=== PATIENT | male | born 1955 | race Asian ===

== ENCOUNTER 2023-08-08 17:38 | Inpatient (IN) | payer BC, MEDICARE ==
[~2023-08-08] VITALS: Ht 167.6 cm; Wt 77.6 kg
[2023-08-08] MEDS: DEXTROSE 50% WATER 50ML SYRINGE IV ONE (18:28)
[2023-08-08 18:36] LABS: BASOPHILS % 0.6 % (0.0-2.0); EOSINOPHILS % 11.6 % (0.0-5.0); HEMATOCRIT. 28.4 % (42.0-52.0); HEMOGLOBIN. 9.8 g/dL (14.0-18.0); LYMPHOCYTES % 9.1 % (20.0-50.0); MEAN CORPUSCULAR HGB CONC 34.6 g/dL (31.0-37.0); MEAN CORPUSCULAR VOLUME 92.6 fL (80.0-94.0); MEAN PLATELET VOLUME 8.2 fl (7.4-10.4); MONOCYTES % 8.3 % (2.0-8.0); NEUTROPHILS % 70.4 % (40.0-76.0); PLATELET 182 x1000/uL (130-400); RED BLOOD CELL COUNT 3.07 mill/uL (4.7-6.1); RED CELL DISTRIBUTION WIDTH 15.9 % (11.6-14.6); WHITE BLOOD COUNT 6.4 x1000/uL (4.5-11.0)
[2023-08-08 18:44] LABS: PROTHROMBIN TIME 10.7 sec (9.6-11.0)
[2023-08-08 18:47] LABS: CHLORIDE 99 mEq/L (98-107); POTASSIUM 4.2 mEq/L (3.5-5.1); SODIUM 136 mEq/L (136-145)
[2023-08-08 18:48] LABS: CALCIUM 9.3 mg/dL (8.7-10.4); CARBON DIOXIDE 28 mEq/L (21-32)
[2023-08-08 18:53] LABS: CREATININE 3.3 mg/dL (0.6-1.3); UREA NITROGEN BLOOD 6 mg/dL (9-23)
[2023-08-08 18:54] LABS: TROPONIN I HIGH SENSITIVITY 27 ng/L (3.0-53)
[2023-08-08 18:55] LABS: ALANINE AMINOTRANSFERASE 14 IU/L (10-49); ALBUMIN 3.7 g/dL (3.2-4.8); ASPARTATE AMINOTRANSFERASE 20 IU/L (<34); BILIRUBIN TOTAL 0.9 mg/dL (0.1-1.0); PROTEIN TOTAL 7.9 g/dL (6.0-8.3)
[2023-08-08 19:01] LABS: GLUCOSE 44 mg/dL (70-105)
[2023-08-08] MEDS: IOHEXOL-350 100 ML BOTTLE ONE (19:05)
[2023-08-09] VITALS (11 sets, daily range): BP systolic 101–137; BP diastolic 33–96; PULSE 63–85; RESP 17–19; TEMP 97.5–98.6
[2023-08-09] MEDS ORDERED: GUAIFENESIN 200MG/10ML SUGAR FREE UDC PO PRN (01:45)
[2023-08-09] MEDS ORDERED: CLONIDINE 0.1MG TABLET PO PRN (01:45)
[2023-08-09] MEDS ORDERED: DOCUSATE SODIUM 100MG CAPSULE PO PRN (01:45)
[2023-08-09] MEDS ORDERED: DEXTROSE 50% WATER 50ML SYRINGE IV PRN (04:00)
[2023-08-09] MEDS: BLOOD SUGAR DIAGNOSTIC STRIP TEST SCH (07:09)
[2023-08-09] MEDS: INSULIN LISPRO 100 UNITS/ML SUBCUT SCH (08:10)
[2023-08-09] MEDS: ENOXAPARIN 30MG/0.3ML SYR SUBCUT SCH (08:40)
[2023-08-09 19:02] LABS: HEPATITIS B SURFACE ANTIGEN NEGATIVE (Negative)
[2023-08-09 19:23] LABS: HEPATITIS A AB IGM NEGATIVE (Negative)
[2023-08-09 19:24] LABS: HEPATITIS B CORE AB IGM NEGATIVE (Negative); HEPATITIS C AB NON REACTIVE (Neg) (Negative)
[2023-08-09 21:18] LABS: BASOPHILS % 0.5 % (0.0-2.0); EOSINOPHILS % 12.1 % (0.0-5.0); HEMATOCRIT. 26.2 % (42.0-52.0); HEMOGLOBIN. 8.9 g/dL (14.0-18.0); LYMPHOCYTES % 10.5 % (20.0-50.0); MEAN CORPUSCULAR HEMOGLOBIN 32.2 pg (28.0-32.0); MEAN CORPUSCULAR HGB CONC 33.9 g/dL (31.0-37.0); MEAN CORPUSCULAR VOLUME 94.8 fL (80.0-94.0); MEAN PLATELET VOLUME 8.5 fl (7.4-10.4); MONOCYTES % 8.4 % (2.0-8.0); NEUTROPHILS % 68.5 % (40.0-76.0); PLATELET 186 x1000/uL (130-400); RED BLOOD CELL COUNT 2.77 mill/uL (4.7-6.1); RED CELL DISTRIBUTION WIDTH 16.6 % (11.6-14.6)
[2023-08-09] MEDS ORDERED: CARV6.2548 PO (21:22)
[2023-08-09] MEDS ORDERED: ASPI-1406 PO (21:22)
[2023-08-09] MEDS ORDERED: PRAS10TA9 PO (21:22)
[2023-08-09 21:27] LABS: CHLORIDE 103 mEq/L (98-107); POTASSIUM 4.9 mEq/L (3.5-5.1); SODIUM 137 mEq/L (136-145)
[2023-08-09 21:28] LABS: CARBON DIOXIDE 28 mEq/L (21-32)
[2023-08-09 21:29] LABS: CALCIUM 9.2 mg/dL (8.7-10.4)
[2023-08-09] MEDS: FAMOTIDINE 20MG TABLET PO SCH (21:32)
[2023-08-09 21:33] LABS: CREATININE 3.6 mg/dL (0.6-1.3); GLUCOSE 108 mg/dL (70-105)
[2023-08-09 21:34] LABS: UREA NITROGEN BLOOD 6 mg/dL (9-23)
[2023-08-09 21:36] LABS: PHOSPHORUS 1.8 mg/dL (2.5-4.9)
[2023-08-10] VITALS: BP 115/40; PULSE 76; RESP 19; TEMP 97.9
[2023-08-10] MEDS ORDERED: BLOOD SUGAR DIAGNOSTIC STRIP TEST SCH (03:00)
[2023-08-10] MEDS: BLOOD SUGAR DIAGNOSTIC STRIP TEST SCH (03:50)
[2023-08-10 04:00] VITALS: BP 108/45; PULSE 92; RESP 20; TEMP 97.5
[2023-08-10 06:02] LABS: BASOPHILS % 0.4 % (0.0-2.0); EOSINOPHILS % 10.1 % (0.0-5.0); HEMATOCRIT. 25.9 % (42.0-52.0); HEMOGLOBIN. 8.9 g/dL (14.0-18.0); LYMPHOCYTES % 10.5 % (20.0-50.0); MEAN CORPUSCULAR HEMOGLOBIN 32.1 pg (28.0-32.0); MEAN CORPUSCULAR HGB CONC 34.5 g/dL (31.0-37.0); MEAN PLATELET VOLUME 8.5 fl (7.4-10.4); MONOCYTES % 7.3 % (2.0-8.0); NEUTROPHILS % 71.7 % (40.0-76.0); PLATELET 179 x1000/uL (130-400); RED BLOOD CELL COUNT 2.79 mill/uL (4.7-6.1); RED CELL DISTRIBUTION WIDTH 16.1 % (11.6-14.6); WHITE BLOOD COUNT 7.5 x1000/uL (4.5-11.0)
[2023-08-10 06:13] LABS: CALCIUM 9.2 mg/dL (8.7-10.4)
[2023-08-10 06:17] LABS: CREATININE 4.5 mg/dL (0.6-1.3)
[2023-08-10 06:19] LABS: THYROID STIMULATING HORMONE 0.58 uIU/mL (0.55-4.78)
[2023-08-10 06:21] LABS: T4 FREE 1.19 ng/dL (0.89-1.76)
[2023-08-10 08:00] VITALS: BP 102/41; PULSE 82; RESP 18; TEMP 98
[2023-08-10 12:00] VITALS: BP 117/43; PULSE 85; RESP 18; TEMP 98.1
[2023-08-10 16:00] VITALS: BP 134/41; PULSE 79; RESP 18; TEMP 98
[2023-08-10] MEDS: LACTULOSE 20G/30ML UDC PO PRN (17:28)
[2023-08-10] MEDS: DIPHENHYDRAMINE 25MG CAPSULE PO PRN (17:28)
[2023-08-10 20:00] VITALS: BP 122/51; PULSE 88; RESP 19; TEMP 98.3
[2023-08-11] VITALS (16 sets, daily range): BP systolic 95–146; BP diastolic 49–67; PULSE 95–111; RESP 18–22; TEMP 97–100.9; O2SAT 95
[2023-08-11] MEDS: IPRATROPIUM/ALBUTEROL 0.5-3(2.5)MG/3ML NEB HHN SCH (01:45)
[2023-08-11] MEDS: ACETAMINOPHEN 325MG TABLET PO PRN (11:48)
[2023-08-11] MEDS: EPOETIN ALFA 4000UNITS/ML VIAL SUBCUT SCH (21:37)
[2023-08-12] VITALS (11 sets, daily range): BP systolic 61–147; BP diastolic 36–63; PULSE 81–113; RESP 18–20; TEMP 97.6–103.1
[2023-08-12] MEDS: VANCOMYCIN 1.5GM/250ML IV SCH (12:59)
[2023-08-12] MEDS ORDERED: MEROPENEM 1G/100ML 100 ML IV SCH (14:00)
[2023-08-12] MEDS: MEROPENEM 500MG/50ML IV NR (14:49)
[2023-08-12] MEDS: SODIUM CHLORIDE 0.9% 250 ML IV ONE (20:44)
[2023-08-12] MEDS: MIDODRINE HCL 5MG TABLET PO SCH (20:55)
[2023-08-13] VITALS (12 sets, daily range): BP systolic 89–115; BP diastolic 38–72; PULSE 69–109; RESP 16–22; TEMP 97.6–102.2; O2SAT 97
[2023-08-13 06:32] LABS: POTASSIUM 4.7 mEq/L (3.5-5.1)
[2023-08-13 07:10] LABS: CREATININE 8.7 mg/dL (0.6-1.3)
[2023-08-13] MEDS: DILTIAZEM HCL 30MG TABLET PO PRN (16:17)
[2023-08-13] MEDS: MEROPENEM 500MG/50ML IV SCH (17:44)
[2023-08-13] MEDS: VANCOMYCIN 500MG PREMIX 100 ML IV SCH (20:46)
[2023-08-14] VITALS (9 sets, daily range): BP systolic 92–137; BP diastolic 45–63; PULSE 77–98; RESP 1–20; TEMP 97.7–98.9
[2023-08-15] VITALS (12 sets, daily range): BP systolic 92–128; BP diastolic 40–70; PULSE 62–100; RESP 18–20; TEMP 97.4–98.9; O2SAT 95
[2023-08-15] MEDS ORDERED: LIDOCAINE HCL 1% 10 MG/ML 10ML VIAL ONE (13:16)
[2023-08-15] MEDS: IPRATROPIUM/ALBUTEROL 0.5-3(2.5)MG/3ML NEB HHN NR (17:54)
[2023-08-15] MEDS: IPRATROPIUM/ALBUTEROL 0.5-3(2.5)MG/3ML NEB HHN SCH (21:30)
[2023-08-16] VITALS (11 sets, daily range): BP systolic 107–126; BP diastolic 33–67; PULSE 71–98; RESP 18–21; TEMP 97.2–98.7; O2SAT 93
[2023-08-16] MEDS: METOCLOPRAMIDE HCL 10MG/2ML VIAL IV PRN (09:40)
[2023-08-16] MEDS ORDERED: NALOXONE HCL 0.4MG/ML VIAL IV PRN (13:00)
[2023-08-16] MEDS: TRAMADOL 50MG TABLET PO PRN (13:15)
[2023-08-16] MEDS: CEFAZOLIN 1000MG PREMIX 50 ML IV SCH (20:19)
[2023-08-16] MEDS: EPOETIN ALFA 4000UNITS/ML VIAL SUBCUT SCH (22:12)
[2023-08-17] VITALS (28 sets, daily range): BP systolic 105–159; BP diastolic 40–92; PULSE 60–80; RESP 12–20; TEMP 97.2–98.3; O2SAT 97–98
[2023-08-17 06:07] LABS: BASOPHILS % 0.5 % (0.0-2.0); EOSINOPHILS % 6.1 % (0.0-5.0); HEMOGLOBIN. 7.5 g/dL (14.0-18.0); LYMPHOCYTES % 9.8 % (20.0-50.0); MEAN CORPUSCULAR HEMOGLOBIN 31.6 pg (28.0-32.0); MEAN CORPUSCULAR HGB CONC 34.2 g/dL (31.0-37.0); MEAN CORPUSCULAR VOLUME 92.4 fL (80.0-94.0); MEAN PLATELET VOLUME 9.6 fl (7.4-10.4); NEUTROPHILS % 73.6 % (40.0-76.0); PLATELET 187 x1000/uL (130-400); RED BLOOD CELL COUNT 2.38 mill/uL (4.7-6.1); RED CELL DISTRIBUTION WIDTH 16.6 % (11.6-14.6); WHITE BLOOD COUNT 8.3 x1000/uL (4.5-11.0)
[2023-08-17 06:27] LABS: POTASSIUM 4.1 mEq/L (3.5-5.1)
[2023-08-17 06:28] LABS: CALCIUM 8.4 mg/dL (8.7-10.4)
[2023-08-17 07:08] LABS: CREATININE 7.2 mg/dL (0.6-1.3)
[2023-08-17] MEDS ORDERED: LIDOCAINE HCL 1% 10 MG/ML 10ML VIAL ONE (07:21)
[2023-08-17] MEDS ORDERED: FENTANYL CITRATE/PF 50MCG/ML 2ML VIAL ONE (07:44)
[2023-08-17] MEDS: FENTANYL CITRATE/PF 50MCG/ML 2ML VIAL IV ONE (07:55)
[2023-08-18] VITALS (11 sets, daily range): BP systolic 108–145; BP diastolic 43–59; PULSE 71–100; RESP 17–20; TEMP 97–99.7; O2SAT 2–98
[2023-08-18] MEDS: CHLORPROMAZINE HCL 25 MG TABLET PO PRN (10:49)
[2023-08-19] VITALS (12 sets, daily range): BP systolic 112–156; BP diastolic 45–63; PULSE 64–83; RESP 18–20; TEMP 97.1–98.1
[2023-08-19] MEDS ORDERED: BACLOFEN 10MG TABLET PO PRN (15:15)
[2023-08-20] VITALS (15 sets, daily range): BP systolic 104–152; BP diastolic 48–77; PULSE 67–100; RESP 16–20; TEMP 97.5–98.4; O2SAT 98
[2023-08-20] MEDS: DIGOXIN 500MCG/2ML AMP IV NR (13:53)
[2023-08-21] VITALS: BP 99/62; PULSE 85; RESP 18; TEMP 98.8
[2023-08-21 04:00] VITALS: BP 124/58; PULSE 67; RESP 20; TEMP 97.5
[2023-08-21 08:00] VITALS: BP 148/60; PULSE 70; RESP 18; TEMP 98.6
[2023-08-21 12:00] VITALS: BP 134/59; PULSE 75; RESP 18; TEMP 98.4
[2023-08-21] MEDS: MAGNESIUM/ALUMINUM HYDROXIDE/SIMETHICONE 30ML UDC PO PRN (14:53)
[2023-08-21 16:00] VITALS: BP 147/47; PULSE 69; RESP 18; TEMP 98
[2023-08-21 20:00] VITALS: BP 128/68; PULSE 75; RESP 18; TEMP 96.1
[2023-08-22] VITALS (14 sets, daily range): BP systolic 109–158; BP diastolic 43–78; PULSE 60–87; RESP 16–19; TEMP 96.6–99.2
[2023-08-23] VITALS: BP 117/57; PULSE 73; RESP 20; TEMP 97.5
[2023-08-23 04:00] VITALS: BP 116/65; PULSE 72; RESP 19; TEMP 97.5
[2023-08-23 08:00] VITALS: BP 123/56; PULSE 67; RESP 18; TEMP 97.2
[2023-08-23 12:00] VITALS: BP 119/55; PULSE 65; RESP 18; TEMP 97.8
[2023-08-23 16:00] VITALS: BP 155/41; PULSE 59; RESP 18; TEMP 98
[2023-08-23 17:10] VITALS: BP 155/41; PULSE 59; TEMP 98; O2SAT 100
[2023-08-23] MEDS ORDERED: CEFAZOLIN 1000MG PREMIX 50 ML IV SCH (21:00)
== END 2023-08-23 18:58 | DRG 871 ==
LOC: ER 18:54 → 5WST 20:23 → EDBEDREQTM 20:59 → EDBEDREQ 20:59 → 7WST 08-09 05:21
PROVIDERS: ADMIT Hospitalist; ATTEND Hospitalist
PROC: 5A1D70Z Performance of Urinary Filtration, Intermittent, Less than 6 Hours Per Day (ICD-10-PCS; 2023-08-09)
PROC: 5A1D70Z Performance of Urinary Filtration, Intermittent, Less than 6 Hours Per Day (ICD-10-PCS; 2023-08-11)
PROC: 5A1D70Z Performance of Urinary Filtration, Intermittent, Less than 6 Hours Per Day (ICD-10-PCS; 2023-08-11)
PROC: 5A1D70Z Performance of Urinary Filtration, Intermittent, Less than 6 Hours Per Day (ICD-10-PCS; 2023-08-15)
PROC: 0JPTXXZ Removal of Tunneled Vascular Access Device from Trunk Subcutaneous Tissue and Fascia, External Approach (ICD-10-PCS; 2023-08-15)
PROC: 0JH63XZ Insertion of Tunneled Vascular Access Device into Chest Subcutaneous Tissue and Fascia, Percutaneous Approach (ICD-10-PCS; principal; 2023-08-17)
PROC: 02HV33Z Insertion of Infusion Device into Superior Vena Cava, Percutaneous Approach (ICD-10-PCS; 2023-08-17)
PROC: B548ZZA Ultrasonography of Superior Vena Cava, Guidance (ICD-10-PCS; 2023-08-17)
PROC: B5181ZA Fluoroscopy of Superior Vena Cava using Low Osmolar Contrast, Guidance (ICD-10-PCS; 2023-08-17)
PROC: 5A1D70Z Performance of Urinary Filtration, Intermittent, Less than 6 Hours Per Day (ICD-10-PCS; 2023-08-17)
PROC: 5A1D70Z Performance of Urinary Filtration, Intermittent, Less than 6 Hours Per Day (ICD-10-PCS; 2023-08-20)
PROC: 5A1D70Z Performance of Urinary Filtration, Intermittent, Less than 6 Hours Per Day (ICD-10-PCS; 2023-08-22)
DX: A41.01 Sepsis due to Methicillin susceptible Staphylococcus aureus (principal); G92.8 Other toxic encephalopathy; N18.6 End stage renal disease; N17.9 Acute kidney failure, unspecified; I12.0 Hypertensive chronic kidney disease with stage 5 chronic kidney disease or end stage renal disease; E11.649 Type 2 diabetes mellitus with hypoglycemia without coma; I95.3 Hypotension of hemodialysis; E11.22 Type 2 diabetes mellitus with diabetic chronic kidney disease; E87.8 Other disorders of electrolyte and fluid balance, not elsewhere classified; D64.9 Anemia, unspecified; K76.9 Liver disease, unspecified; Z99.2 Dependence on renal dialysis; I48.91 Unspecified atrial fibrillation; I87.8 Other specified disorders of veins; I25.10 Atherosclerotic heart disease of native coronary artery without angina pectoris; I25.2 Old myocardial infarction
CPT/HCPCS: 36415; 36556; 36589; 70496; 70498; 70551; 71045; 76937; 77001; 80048; 80053; 80061; 80202; 82962; 83036; 83735; 84100; 84145; 84439; 84443; 84484; 85018; 85025; 86705; 86709; 87077; 87186; 87340; 90935; 93005; 93306; 94640; 97162; 97166; 99152; 99153; 99291; C1725; C1750; C1769; C1887; C1892; C1893; J0690; J0885; J1160; J1642; J1650; J1815; J2185; J2765; J3010; J3370; J3490; Q0161; Q0163; Q9967; G0500